=== PATIENT | female | born 1995 | race Caucasian/White ===

== ENCOUNTER 2019-08-13 07:09 | Inpatient (IN) | payer MEDICAID, OTHER ==
[2019-08-13] MEDS ORDERED: Lidocaine 1% 50 ML MDV ONE (07:36)
[2019-08-13] MEDS ORDERED: Lanolin 100% Cream 40 GM Tube TOP PRN (08:03)
[2019-08-13] MEDS ORDERED: Docusate Sodium 100 MG Cap PO PRN (08:03)
[2019-08-13] MEDS ORDERED: Ibuprofen 200 MG Tab, 24 Tab Bulk Bottle PO PRN (08:05)
[2019-08-13] MEDS ORDERED: Acetaminophen 325 MG Tab, 50 Tab Bulk Bottle PO PRN (08:05)
--- NOTE | 2019-08-13 08:36 | PCM.DEL ---
L & D Note - General Info Date of Service: 08/13/19 Mother's Due Date: 08/25/19 - Delivery Note Labor: Spontaneous Delivery Outcome: Livebirth Infant Delivery Method: Spontaneous Vaginal Delivery-Single Delivery Mode: Spontaneous Presentation: straight OA Nuchal Cord: Present (loose, reduced) Anesthesia Type: Nitrous Oxide Anesthetic: Lidocaine (Xylocaine) 1% Plain Local Anesthetic Volume: 3cc Amniotic Fluid Description: Clear Episiotomy Type: None Laceration: 1st Degree Suture type: Vicryl Suture size: 3-0 Placenta: Intact, Spontaneous Cord: 3 Vessels Estimated Blood Loss: 100 Resuscitation Needed: No [place]: Bulb Syringe, Stimulated Score 1 min: 9 Score 5 min: 9 Second Stage Interventions: Reports: Second Nurse Assessed Progress of Descent, Second Nurse Reviewed Contraction Pattern, Second Nurse Reviewed Heart Tones, Encouragement Given, Pushing Effectively, Pushing Involuntarily Delivery Comments (Free Text/Narrative):: 08/13/19 23 yo G2 now P2 at 38 2/7 weeks who doctors in [place] called in labor this am and could not make it there. When she arrived nurses reported she was 8 cm with a bulging bag. I arrived shortly after and patient was complete and we began pushing and patient was given nitrous oxide. AROM was performed with clear fluid. Male infant delivered straight OA with a loose nuchal cord easily reduced, was stimulated and then cried spontaneously on mothers chest. Delayed cord clamping done. Apgars 9, 9. Placenta delivered intact with 3 vessel cord. There is a first degree laceration that was repaired due to oozing, no vaginal or cervical lacerations. EBL 100 ml, fundus firm and pitocin IV given for 3rd stage management. Mother is GBS negative, O negative blood type, rubella immune, RPR/HIV/Hep B & C all nonreactive. She had no complications in other than a shortened cervix noted early on around 20 weeks. This is her second precipitous . Stages of labor: 1: 2: 8861-1185 3: 5145-7613 - General Info Date of Service: 08/13/19 Functional Status: Reports: Pain Controlled - Review of Systems General: Reports: No Symptoms HEENT: Reports: No Symptoms Pulmonary: Reports: No Symptoms Cardiovascular: Reports: No Symptoms Gastrointestinal: Reports: No Symptoms Genitourinary: Reports: No Symptoms Musculoskeletal: Reports: No Symptoms Skin: Reports: No Symptoms Neurological: Reports: No Symptoms Psychiatric: Reports: No Symptoms - Patient Data Weight - Most Recent: 65 kg Lab Results Last 24 Hours: Laboratory Results - last 24 hr 08/13/19 Range/Units 08:04 WBC 9.0 (4.5-11.0) K/uL RBC 3.29 L (3.30-5.50) M/uL Hgb 10.8 L (12.0-15.0) g/dL Hct 32.0 L (36.0-48.0) % MCV 97 (80-98) fL MCH 33 H (27-31) pg MCHC 34 (32-36) % Plt Count 154 (150-400) K/uL Neut % (Auto) 78 H (36-66) % Lymph % (Auto) 14 L (24-44) % [place] % (Auto) 8 H (2-6) % Eos % (Auto) 0 L (2-4) % Baso % (Auto) 0 (0-1) % Med Orders - Current: Current Medications Acetaminophen (Tylenol Bulk Bottle) 0 mg PO Q4H PRN PRN Reason: Pain Docusate Sodium (Colace) 100 mg PO BID PRN PRN Reason: Constipation Emollient Ointment (Lansinoh Hpa) 1 gm TOP ASDIRECTED PRN PRN Reason: Sore Nipples Ibuprofen (Motrin Bulk Bottle) 600 mg PO Q6H PRN PRN Reason: Pain Discontinued Medications Oxytocin/Sodium Chloride (Pitocin In Ns 20 Units/1,000 Ml) Confirm Administered Dose 20 unit in 1,000 mls @ as directed .ROUTE .STK-MED ONE Stop: 08/13/19 07:14 Lidocaine HCl (Xylocaine 1%) Confirm Administered Dose 50 ml .ROUTE .STK-MED ONE Stop: 08/13/19 07:37 - Exam General: Alert, Oriented HEENT: Pupils Equal, Pupils Reactive, EOMI, Mucous Membr. Moist/[place] Neck: Supple Lungs: Clear to Auscultation, Normal Respiratory Effort Cardiovascular: Regular Rate, Regular Rhythm GI/Abdominal Exam: Normal Bowel Sounds, Soft, Non-Tender, No Organomegaly, No Distention, Pelvis Stable (Female) Exam: Normal External Exam, Normal Bimanual Exam, Cervical Dilatation, Vaginal Bleeding. No: Vaginal Tears Back Exam: Normal Inspection, Full Range of Motion Extremities: Normal Inspection, Normal Range of Motion, Non-Tender, No Pedal Edema, Normal Capillary Refill Skin: Warm, Dry, Intact Neurological: No New Focal Deficit Psy/Mental Status: Alert, Normal Affect, Normal Mood - Problem List & Annotations (1) Precipitous delivery, delivered (current hospitalization) SNOMED Code(s): 470525883, 409575857 Code(s): O62.3 - PRECIPITATE LABOR Status: Acute Current Visit: Yes (2) Vaginal delivery SNOMED Code(s): 861166745 Code(s): O80 - ENCOUNTER FOR FULL-TERM UNCOMPLICATED DELIVERY Status: Acute Current Visit: Yes (3) Rh negative status during SNOMED Code(s): 561732131 Code(s): O26.899 - OTH RELATED CONDITIONS, UNSPECIFIED TRIMESTER; Z67.91 - UNSPECIFIED BLOOD TYPE, RH NEGATIVE Status: Acute Current Visit: Yes (4) started SNOMED Code(s): 069546616 Code(s): HDH2366 - Status: Acute Current Visit: Yes (5) First degree perineal laceration SNOMED Code(s): 88312454 Code(s): O70.0 - FIRST DEGREE PERINEAL LACERATION DURING DELIVERY Status: Acute Current Visit: Yes - Problem List Review Problem List Initiated/Reviewed/Updated: Yes - My Orders Last 24 Hours: My Active Orders 08/13/19 07:11 OB Check [OM.PC] Click To Edit 08/13/19 Breakfast Regular Diet [DIET] 08/13/19 08:03 Patient Status [ADT] Routine May Shower [RC] ASDIRECTED Up ad Janee [RC] ASDIRECTED Vital Signs [RC] PFP Consult to Hose Cementer [CONS] Routine Docusate Sodium [Colace] 100 mg PO BID PRN Lanolin [Lansinoh HPA] 1 gm TOP ASDIRECTED PRN Assess Lochia [WOMSER] Per Unit Routine Assess Uterine Involution [WOMSER] Per Unit Routine DVT/VTE Prophylaxis Reflex [OM.PC] Routine Resuscitation Status Routine 08/13/19 08:04 VTE/DVT Education [RC] Click to Edit Ice Therapy [OM.PC] Per Unit Routine Perineal Care [OM.PC] Per Unit Routine Sitz Bath [OM.PC] Per Unit Routine 08/13/19 08:05 Acetaminophen [Tylenol Bulk Bottle] See Dose Instructions PO Q4H PRN Ibuprofen [Motrin Bulk Bottle] 600 mg PO Q6H PRN 08/14/19 05:11 CBC WITH AUTO DIFF [HEME] AM - Assessment Assessment:: 08/13/19 23 yo with precipitous vaginal delivery at 38 2/7 1st degree laceration repaired EBL 100mL RH negative mother GBS negative Plans to breastfeed - Plan Plan:: 08/13/19 Routine cares support Cord blood workup for Rh negative mother Anticipate discharge home 24-48 hours
[2019-08-13] MEDS ORDERED: Lidocaine 1% 50 ML MDV INJECT ONE (12:00)
--- NOTE | 2019-08-14 08:32 | PCM.PNPP ---
- General Info Date of Service: 08/14/19 Functional Status: Reports: Pain Controlled - Review of Systems General: Reports: No Symptoms HEENT: Reports: No Symptoms Pulmonary: Reports: No Symptoms Cardiovascular: Reports: No Symptoms Gastrointestinal: Reports: No Symptoms Genitourinary: Reports: No Symptoms Musculoskeletal: Reports: No Symptoms Skin: Reports: No Symptoms Neurological: Reports: No Symptoms Psychiatric: Reports: No Symptoms - General Info Date of Service: 08/14/19 - Patient Data Vital Signs - Most Recent: Last Vital Signs Temp 36.6 C 08/14/19 04:00 Pulse 60 08/14/19 04:00 Resp 16 08/14/19 04:00 BP 101/51 L 08/14/19 04:00 Pulse Ox 99 08/14/19 04:00 Weight - Most Recent: 65 kg I&O - Last 24 Hours: Intake & Output 08/13/19 08/14/19 08/14/19 22:59 06:59 14:59 Intake Total 1102 Balance 1102 Lab Results - Last 24 Hours: Laboratory Results - last 24 hr 08/13/19 08/14/19 Range/Units 13:47 06:10 WBC 9.7 (4.5-11.0) K/uL RBC 3.70 (3.30-5.50) M/uL Hgb 11.9 L (12.0-15.0) g/dL Hct 36.1 (36.0-48.0) % MCV 98 (80-98) fL MCH 32 H (27-31) pg MCHC 33 (32-36) % Plt Count 208 (150-400) K/uL Neut % (Auto) 68 H (36-66) % Lymph % (Auto) 20 L (24-44) % [place] % (Auto) 9 H (2-6) % Eos % (Auto) 2 (2-4) % Baso % (Auto) 1 (0-1) % Blood Type O NEGATIVE Gel Antibody Screen Negative Rhogam Indicated Yes, baby rh pos Med Orders - Current: Current Medications Acetaminophen (Tylenol Bulk Bottle) 0 mg PO Q4H PRN PRN Reason: Pain Last Admin: 08/13/19 20:18 Dose: 1 bottle Documented by: Docusate Sodium (Colace) 100 mg PO BID PRN PRN Reason: Constipation Emollient Ointment (Lansinoh Hpa) 1 gm TOP ASDIRECTED PRN PRN Reason: Sore Nipples Last Admin: 08/13/19 20:20 Dose: 1 bottle Documented by: Oxytocin/Sodium Chloride (Pitocin In Ns 20 Units/1,000 Ml) 20 unit in 1,000 mls @ 999 mls/hr IV TITRATE ALEJANDRO; Protocol Last Admin: 08/13/19 07:33 Dose: 999 ml/hr, 999 mls/hr Documented by: Ibuprofen (Motrin Bulk Bottle) 600 mg PO Q6H PRN PRN Reason: Pain Last Admin: 08/13/19 20:17 Dose: 1 bottle Documented by: Discontinued Medications Oxytocin/Sodium Chloride (Pitocin In Ns 20 Units/1,000 Ml) Confirm Administered Dose 20 unit in 1,000 mls @ as directed .ROUTE .STK-MED ONE Stop: 08/13/19 07:14 Last Admin: 08/13/19 13:46 Dose: Not Given Documented by: Lidocaine HCl (Xylocaine 1%) Confirm Administered Dose 50 ml .ROUTE .STK-MED ONE Stop: 08/13/19 07:37 Last Admin: 08/13/19 08:35 Dose: 50 ml Documented by: - Interaction Infant Disposition, : [place] in Room with Family Infant Interaction: Holding Feeding: Breastfed ; Nursed Well Support Person: - Recovery Exam Fundal Tone: Firm Fundal Level: 2 Fingerbreadths Below Umbilicus Fundal Placement: Midline Lochia Amount: Small Lochia Color: Rubra/Red Perineum Description: Edematous Episiotomy/Laceration: Approximated Bladder Status: Voiding Urinary Elimination: Voided Other Urinary Elimination, : attempted to void but unable at this time - Exam General: Alert, Oriented, Cooperative HEENT: Pupils Equal, Pupils Reactive, EOMI, Mucous Membr. Moist/[place] Neck: Supple Lungs: Clear to Auscultation, Normal Respiratory Effort Cardiovascular: Regular Rate, Regular Rhythm GI/Abdominal Exam: Normal Bowel Sounds, Soft, Non-Tender, No Organomegaly, No Distention, No Abnormal Bruit, No Mass, Pelvis Stable Extremities: Normal Inspection, Normal Range of Motion, Non-Tender, No Pedal Edema, Normal Capillary Refill Skin: Warm, Dry, Intact Neurological: No New Focal Deficit Psy/Mental Status: Alert, Normal Affect, Normal Mood - Problem List & Annotations (1) Breastfed infant SNOMED Code(s): 740147622 Code(s): Z78.9 - OTHER SPECIFIED HEALTH STATUS Status: Acute Current Visit: Yes (2) First degree perineal laceration SNOMED Code(s): 78919322 Code(s): O70.0 - FIRST DEGREE PERINEAL LACERATION DURING DELIVERY Status: Acute Current Visit: Yes (3) Precipitous delivery, delivered (current hospitalization) SNOMED Code(s): 166210829, 892423868 Code(s): O62.3 - PRECIPITATE LABOR Status: Acute Current Visit: Yes (4) Rh negative status during SNOMED Code(s): 836515039 Code(s): O26.899 - OTH RELATED CONDITIONS, UNSPECIFIED TRIMESTER; Z67.91 - UNSPECIFIED BLOOD TYPE, RH NEGATIVE Status: Acute Current Visit: Yes (5) Vaginal delivery SNOMED Code(s): 447965480 Code(s): O80 - ENCOUNTER FOR FULL-TERM UNCOMPLICATED DELIVERY Status: Acute Current Visit: Yes - Problem List Review Problem List Initiated/Reviewed/Updated: Yes - Assessment Assessment:: 08/13/19 23 yo with precipitous vaginal delivery at 38 2/7 1st degree laceration repaired EBL 100mL RH negative mother GBS negative Plans to breastfeed 08/14/2019 Day One after a precipitous delivery well Fundus firm and bleeding decreasing Perineum minimal swelling and intact Voiding and passing gas Desires discharge home today - Plan Plan:: 08/13/19 Routine cares support Cord blood workup for Rh negative mother Anticipate discharge home 24-48 hours 08/14/19 Continue routine cares Continue to support and encourage Discharge home today around noon To see Dr. Cline in [place] for visit in six weeks
--- NOTE | 2019-09-09 08:33 | PCM.LDHP ---
L&D History of Present Illness - General Date of Service: 08/13/19 Admit Problem/Dx: Patient Status Order with Admit Dx/Problem 08/13/19 08:03 Patient Status [ADT] Routine Admission Diagnosis/Problem Admission Diagnosis/Problem Vaginal delivery Source of Information: Patient History Limitations: Reports: No Limitations - History of Present Illness Introduction:: 08/13/19 Spontaneous labor began early this am around [id number]. This woke her up. Labor got intense fast and her called Maryam Roy stating they could not make it to PCP in [place]. Patient is at 38 2/7 weeks with no reported problems. Timing/Duration: Reports: minutes: (2) Location, : Reports: Abdomen Severity: Moderate Improves with: Reports: None Worsens with: Reports: None Associated Symptoms: Reports: vaginal bleeding (bloody show). Denies: vaginal fluid - Related Data Allergies/Adverse Reactions: Allergies Allergy/AdvReac Type Severity Reaction Status Date / Time No Known Allergies Allergy Verified 06/23/14 13:04 Home Medications: Home Meds 95/Iron Fum/Folic/Dha [ + Dha Combo Pack] 1 tab PO DAILY 08/13/19 [History] Past Medical History HEENT History: Reports: None Cardiovascular History: Reports: None Respiratory History: Reports: None Gastrointestinal History: Reports: GERD Genitourinary History: Reports: None [employer]IVE History: Reports: : 2 Para: 1 LMP (Approximate): Musculoskeletal History: Reports: None Neurological History: Reports: None Psychiatric History: Reports: None Endocrine/Metabolic History: Reports: None Hematologic History: Reports: None Immunologic History: Reports: None Oncologic (Cancer) History: Reports: None Dermatologic History: Reports: None - Infectious Disease History Infectious Disease History: Reports: None - Past Surgical History Head Surgeries/Procedures: Reports: None HEENT Surgical History: Reports: None Cardiovascular Surgical History: Reports: None Respiratory Surgical History: Reports: None GI Surgical History: Reports: None Female Surgical History: Reports: None Endocrine Surgical History: Reports: None Neurological Surgical History: Reports: None Musculoskeletal Surgical History: Reports: None Oncologic Surgical History: Reports: None Dermatological Surgical History: Reports: None Social & Family History - Tobacco Use Smoking Status *Q: Never Smoker - Caffeine Use Caffeine Use: Reports: Soda - Recreational Drug Use Recreational Drug Use: No H&P Review of Systems - Review of Systems: Review Of Systems: See Below General: Reports: No Symptoms HEENT: Reports: No Symptoms Pulmonary: Reports: No Symptoms Cardiovascular: Reports: No Symptoms Gastrointestinal: Reports: No Symptoms Genitourinary: Reports: No Symptoms Musculoskeletal: Reports: No Symptoms Skin: Reports: No Symptoms Psychiatric: Reports: No Symptoms Neurological: Reports: No Symptoms Hematologic/Lymphatic: Reports: No Symptoms Immunologic: Reports: No Symptoms L&D Exam - Exam Exam: See Below - Vital Signs Vital Signs: Last Vital Signs Temp 35.9 C L 08/14/19 08:00 Pulse 72 08/14/19 08:00 Resp 16 08/14/19 08:00 BP 108/69 08/14/19 08:00 Pulse Ox 100 08/14/19 08:00 Weight: 65 kg - OB Specific Contraction Duration (sec): 40-80 Contraction Frequency (min): 1-2 Contraction Intensity: Strong Movement: Active Heart Tones: Present Heart Rate (FHR) Variability: Moderate (6-25 bmp) Presentation: straight OA - Exam General: Alert, Oriented HEENT: PERRLA Neck: Supple Lungs: Clear to Auscultation, Normal Respiratory Effort Cardiovascular: Regular Rate, Regular Rhythm GI/Abdominal Exam: Normal Bowel Sounds Rectal Exam: Normal Exam Genitourinary: Normal external exam, Cervical dilitation, Enlarged uterus, Vaginal bleeding Back Exam: Normal Inspection, Full Range of Motion Extremities: Normal Inspection, Normal Range of Motion, No Pedal Edema Skin: Warm, Dry, Intact Neurological: Cranial Nerves Intact, Reflexes Equal Bilateral Psychiatric: Alert, Normal Affect, Normal Mood - Patient Data Result Diagrams: 08/14/19 06:10 - Problem List (1) Precipitous delivery, delivered (current hospitalization) SNOMED Code(s): 635940755, 593419262 ICD Code: O62.3 - PRECIPITATE LABOR Status: Acute (2) Vaginal delivery SNOMED Code(s): 494763493 ICD Code: O80 - ENCOUNTER FOR FULL-TERM UNCOMPLICATED DELIVERY Status: Acute (3) Rh negative status during SNOMED Code(s): 862547385 ICD Code: O26.899 - OTH RELATED CONDITIONS, UNSPECIFIED TRIMESTER; Z67.91 - UNSPECIFIED BLOOD TYPE, RH NEGATIVE Status: Acute (4) started SNOMED Code(s): 999381321 ICD Code: PTB1242 - Status: Acute (5) First degree perineal laceration SNOMED Code(s): 52173018 ICD Code: O70.0 - FIRST DEGREE PERINEAL LACERATION DURING DELIVERY Status: Acute Problem List Initiated/Reviewed/Updated: Yes Assessment/Plan Comment:: 08/13/19 8 cm with bulging bag on admission, delivery shortly after arrival No complications noted FHT's reassuring for short strip obtained, difficulty picking up due to patient movement in labor Plan: , see delivery note 08/13/19 Routine cares support Cord blood workup for Rh negative mother Anticipate discharge home 24-48 hours 08/14/19 Continue routine cares Continue to support and encourage Discharge home today around noon To see Dr. Cline in [place] for visit in six weeks
== END 2019-08-14 12:00 | disposition home or self-care (01) | DRG 806 ==
LOC: JP.OBCHECK 07:09 → JP.OB 07:23 → OBSVTOIN 07:27 → JP.OB 07:27 → JP.MS 09:56
PROVIDERS: ADMIT Advanced Practice Midwife; ATTEND Advanced Practice Midwife
PROC: 10E0XZZ Delivery of Products of Conception, External Approach (ICD-10-PCS; principal; 2019-08-13)
PROC: 10907ZC Drainage of Amniotic Fluid, Therapeutic from Products of Conception, Via Natural or Artificial Opening (ICD-10-PCS; 2019-08-13)
PROC: 0HQ9XZZ Repair Perineum Skin, External Approach (ICD-10-PCS; 2019-08-13)
DX: O62.3 Precipitate labor (principal); O26.873 Cervical shortening, third trimester; Z37.0 Single live birth; O70.0 First degree perineal laceration during delivery; O69.81X0 Labor and delivery complicated by cord around neck, without compression, not applicable or unspecified; Z3A.38 38 weeks gestation of pregnancy
CPT/HCPCS: 36415; 36430; 59409; 85025; 85460; 86850; 86900; 86901; A9270-GY; J2001; J2590; J2790

== ENCOUNTER 2020-07-08 07:32 | Day surgery (SDC) | payer MEDICAID ==
[~2020-07-08 07:32] MED LIST: Bupivacaine 0.5% 50 ML MDV ONE; Lidocaine 1% with EPINEPHrine 1:100,000 50 ML MDV ONE; Midazolam 1 MG/ML 2 ML SDV ONE; Propofol 200 MG/20 ML SDV ONE; fentaNYL 100 MCG/2 ML SDV ONE
[2020-07-08] MEDS ORDERED: Acetaminophen 500 MG Tab PO ONE (08:00)
[2020-07-08] MEDS ORDERED: Dextrose 5%-Lactated Ringers 1,000 ML IV SCH (08:00)
[2020-07-08 08:24] LABS: CORONAVIRUS COVID-19 NAA NEGATIVE (NEGATIVE)
[2020-07-08] MEDS ORDERED: Meropenem 500 MG in Sodium Chloride 0.9% 50 ML IV ONE (08:30)
[2020-07-08] MEDS ORDERED: Bacitracin Oint 1 GM U/D Packet ONE (09:43)
[2020-07-08] MEDS ORDERED: Linezolid 600 MG in Premix Bag 1 BAG IV ONE (10:45)
--- NOTE | 2020-07-17 10:57 | OR ---
DATE OF PROCEDURE: 07/08/2020 SURGEON: Kristian Jerez MD PREOPERATIVE DIAGNOSIS: Infected epidermoid cyst, posterior aspect of the right lower earlobe. POSTOPERATIVE DIAGNOSIS: Infected epidermoid cyst, posterior right lower earlobe, with involvement of underlying cartilage. OPERATIVE PROCEDURES: 1. Excision of an infected epidermoid cyst, right lower aspect of the earlobe, with layered closure (40559, 04570). 2. Excision of a portion of the cartilaginous substance of the right lower earlobe (60347). ANESTHESIA: Local plus IV sedation. INDICATIONS FOR PROCEDURE: The patient presents with a recurrent infected epidermoid cyst from the posterior aspect of her right lower earlobe. The plan is to do an excision of this with either primary closure or possibly leaving the wound open depending on the operative findings. The potential risks, including bleeding, infection, local recurrence of the problem, and some cosmetic deformity as well as possible spreading infection involving the earlobe with potential need for more extensive resection, were all gone over, and the patient wishes to proceed. DETAILS OF PROCEDURE: The patient was taken to the operating room and placed in a supine position after IV sedation was given. The patient's head was turned towards the left, and the area around the right ear was prepped and draped. An elliptical mariae lena was made on the posterior aspect of the lower earlobe with a vertical orientation. The area around this was anesthetized with 1% lidocaine with Marcaine. An elliptical incision was made around the lesion and the epidermoid cyst removed more or less intact. The cyst did involve some attachment to the underlying cartilage, and a portion of the external ear cartilage was excised as well. Off the field, the area was opened, and cultures were obtained. The incision otherwise was fairly clean and was irrigated with a Zyvox-containing saline solution. The incision was closed with some 5-0 Vicryl stitch deep and then a 6-0 Prolene skin stitch. The lesion plus margin length was 2.8 cm. The incision length was 3.4 cm. The patient was taken to the recovery room in satisfactory condition. The patient has been on Augmentin orally, and we will continue that. We will call the patient over the weekend with the culture reports and adjust antibiotics as needed. She does have significant lymphadenopathy involving the jugular chain below the right earlobe as well as an enlarged node in the submental area, so we will need to address antibiotics as indicated based on the C and S findings over the next 2 to 3 days. Kristian Jerez MD /[id number]
== END 2020-07-08 12:10 | disposition home or self-care (01) ==
LOC: JP.SDS 07:32
PROVIDERS: ATTEND Surgery
DX: L72.0 Epidermal cyst (principal); Z01.812 Encounter for preprocedural laboratory examination; Z20.822 Contact with and (suspected) exposure to COVID-19
CPT/HCPCS: 0241U; 11443; 12052; 81025; 87070; 87075; 87077; 87186; 87205; 88304; A9270; J2020; J2185; J2250; J2704; J3010; J3490; J7121

== ENCOUNTER 2022-02-10 12:57 | Emergency (ER) | payer MEDICAID ==
[2022-02-10 14:22] LABS: CORONAVIRUS COVID-19 NAA NEGATIVE (NEGATIVE)
== END 2022-02-10 14:35 | disposition home or self-care (01) ==
LOC: JP.ED 12:57
DX: J10.1 Influenza due to other identified influenza virus with other respiratory manifestations (principal); Z20.822 Contact with and (suspected) exposure to COVID-19
CPT/HCPCS: 0241U; 99284

== ENCOUNTER 2023-03-24 09:02 | Emergency (ER) | payer OTHER, MEDICAID ==
[2023-03-24 09:28] LABS: BASOPHILS ABSOLUTE AUTO 0.05 K/uL (0.00-0.10); BASOPHILS PERCENT AUTO 0.5 % (0.1-1.3); EOSINOPHILS ABSOLUTE AUTO 0.04 K/uL (0.00-0.40); EOSINOPHILS PERCENT AUTO 0.4 % (0.0-5.4); HEMOGLOBIN 13.3 g/dL (11.2-15.5); IMMATURE GRAN ABSOLUTE AUTO 0.04 K/uL (0.00-0.23); IMMATURE GRAN PERCENT AUTO 0.4 % (0.0-0.7); LYMPHOCYTES ABSOLUTE AUTO 0.67 K/uL (0.8-3.3); LYMPHOCYTES PERCENT AUTO 6.5 % (11.4-47.7); MEAN CORPUSCULAR HEMOGLOBIN 30.3 pg (31.6-35.5); MEAN CORPUSCULAR HGB CONC 34.1 g/dL (31.6-35.5); MEAN CORPUSCULAR VOLUME 88.8 fL (81.4-99.0); MONOCYTES ABSOLUTE AUTO 1.07 K/uL (0.20-0.90); MONOCYTES PERCENT AUTO 10.4 % (3.3-12.6); NEUTROPHILS ABSOLUTE AUTO 8.44 K/uL (1.0-7.6); NEUTROPHILS PERCENT AUTO 81.8 % (40.0-78.1); PLATELET COUNT,PLT 185 K/uL (130-375); RED BLOOD CELL COUNT 4.39 M/uL (3.77-5.24); WHITE BLOOD CELL COUNT,WBC 10.3 K/uL (3.2-11.0)
[2023-03-24 10:08] LABS: CORONAVIRUS COVID-19 NAA NEGATIVE (NEGATIVE); INFLUENZA A NAA NEGATIVE (NEGATIVE); INFLUENZA B NAA NEGATIVE (NEGATIVE); RESPIRATORY SYNCYTIAL VIR NAA NEGATIVE (NEGATIVE)
[2023-03-24] MEDS: Sodium Chloride 0.9% 1,000 ML IV SCH (10:42)
[2023-03-24] MEDS: cefTRIAXone 2 GM in Sodium Chloride 0.9% 50 ML IV ONE (10:42)
[2023-03-24] MEDS: Fluconazole 100 MG Tab PO ONE (12:36)
== END 2023-03-24 12:37 | disposition home or self-care (01) ==
LOC: JP.ED 09:02
DX: J02.9 Acute pharyngitis, unspecified (principal); B96.89 Other specified bacterial agents as the cause of diseases classified elsewhere
CPT/HCPCS: 0241U; 36415; 85025; 86308; 87651; 96365; 99283; A9270; J0696; J3490; J7030

== ENCOUNTER 2023-03-26 08:03 | Emergency (ER) | payer OTHER, MEDICAID | END 2023-03-26 09:10 | disposition home or self-care (01) | LOC: JP.ED 08:03 | DX: J02.8 Acute pharyngitis due to other specified organisms (principal) | CPT/HCPCS: 99282 ==